=== PATIENT | female | born 1960 | race African-American/Black ===

== ENCOUNTER 2018-09-28 08:33 | Emergency (ER) | payer SELFPAY ==
[~2018-09-28] VITALS: Ht 162.6 cm; Wt 55.0 kg
[2018-09-28] MEDS ORDERED: IBUPROFEN 600MG TABLET PO ONE (09:30)
[2018-09-28 12:18] VITALS: BP 165/77
== END 2018-09-28 12:25 | disposition home or self-care (01) ==
LOC: ER 08:47
DX: M62.838 Other muscle spasm (principal)
CPT/HCPCS: 73140; 99283

== ENCOUNTER 2018-12-14 18:00 | Emergency (ER) | payer SELFPAY ==
[~2018-12-14] VITALS: Ht 167.6 cm; Wt 50.0 kg
[2018-12-14 18:03] VITALS: BP 136/82
[2018-12-14] MEDS ORDERED: SODIUM CHLORIDE 0.9% 1,000 ML IV ONE (22:25)
[2018-12-14] MEDS ORDERED: DIPHENHYDRAMINE 50MG/ML VIAL IV ONE (22:30)
[2018-12-14 22:52] LABS: BASOPHILS % 0.8 % (0.0-2.0); EOSINOPHILS % 3.3 % (0.0-5.0); HEMATOCRIT. 32.9 % (36.0-48.0); HEMOGLOBIN. 11.1 g/dL (12.0-16.0); LYMPHOCYTES % 11.1 % (20.0-50.0); MEAN CORPUSCULAR HEMOGLOBIN 33.2 pg (28.0-32.0); MEAN CORPUSCULAR VOLUME 98.2 fL (81.0-99.0); MEAN PLATELET VOLUME 6.5 fl (7.4-10.4); MONOCYTES % 7.1 % (2.0-8.0); NEUTROPHILS % 77.7 % (40.0-76.0); PLATELET 261 x1000/uL (130-400); RED BLOOD CELL COUNT 3.35 mill/uL (4.2-5.4); RED CELL DISTRIBUTION WIDTH 14.1 % (11.6-14.6)
[2018-12-14 22:54] LABS: CHLORIDE 103 mEq/L (98-107)
== END 2018-12-15 02:21 | disposition home or self-care (01) ==
LOC: ER 18:00
DX: R25.2 Cramp and spasm (principal); R21 Rash and other nonspecific skin eruption; R10.9 Unspecified abdominal pain
CPT/HCPCS: 36415; 80053; 85025; 96374; 99283; J1200; J7030

== ENCOUNTER 2018-12-28 19:17 | Emergency (ER) | payer SELFPAY ==
[~2018-12-28] VITALS: Ht 165.1 cm; Wt 48.0 kg
[2018-12-28 23:05] VITALS: BP 127/62
[2018-12-28] MEDS ORDERED: DIPHENHYDRAMINE HCL/ZINC ACET 28 GM CREAM TOP STA (23:05)
[2018-12-28] MEDS ORDERED: ACETAMINOPHEN 325MG TABLET PO ONE (23:15)
== END 2018-12-29 | disposition home or self-care (01) ==
LOC: ER 19:17
DX: L29.8 Other pruritus (principal); F12.10 Cannabis abuse, uncomplicated; M25.562 Pain in left knee; M25.561 Pain in right knee; F17.200 Nicotine dependence, unspecified, uncomplicated; Z59.0 Homelessness
CPT/HCPCS: 99283

== ENCOUNTER 2019-01-29 23:36 | Emergency (ER) | payer SELFPAY ==
[~2019-01-29] VITALS: Ht 170.2 cm; Wt 58.0 kg
[2019-01-30] MEDS ORDERED: ACETAMINOPHEN 325MG TABLET PO ONE (01:15)
[2019-01-30 08:35] VITALS: BP 142/79
== END 2019-01-30 09:52 | disposition left against medical advice (07) ==
LOC: ER 23:36
DX: G89.29 Other chronic pain (principal); Z59.0 Homelessness; F17.210 Nicotine dependence, cigarettes, uncomplicated
CPT/HCPCS: 99283

== ENCOUNTER 2019-01-30 16:35 | Emergency (ER) | payer SELFPAY ==
[~2019-01-30] VITALS: Ht 162.6 cm; Wt 53.0 kg
[2019-01-30 22:08] LABS: CHLORIDE 96 mEq/L (98-107)
[2019-01-30 22:09] LABS: BASOPHILS % 1.1 % (0.0-2.0); EOSINOPHILS % 0.4 % (0.0-5.0); HEMATOCRIT. 32.3 % (36.0-48.0); HEMOGLOBIN. 11.1 g/dL (12.0-16.0); LYMPHOCYTES % 29.2 % (20.0-50.0); MEAN CORPUSCULAR HEMOGLOBIN 33.1 pg (28.0-32.0); MEAN CORPUSCULAR VOLUME 96.8 fL (81.0-99.0); MEAN PLATELET VOLUME 6.4 fl (7.4-10.4); MONOCYTES % 6.3 % (2.0-8.0); PLATELET 233 x1000/uL (130-400); RED BLOOD CELL COUNT 3.34 mill/uL (4.2-5.4); RED CELL DISTRIBUTION WIDTH 14.5 % (11.6-14.6)
[2019-01-30 22:26] LABS: ETHANOL BLOOD 303 mg/dL
[2019-01-31 07:30] VITALS: BP 126/74
== END 2019-01-31 09:31 | disposition home or self-care (01) ==
LOC: ER 16:35
DX: F10.129 Alcohol abuse with intoxication, unspecified (principal); R53.83 Other fatigue; F32.9 Major depressive disorder, single episode, unspecified; Z59.0 Homelessness
CPT/HCPCS: 36415; 80307; 80320; 80329; 99283; G0480

== ENCOUNTER 2019-01-31 17:14 | Emergency (ER) | payer SELFPAY ==
[~2019-01-31] VITALS: Ht 162.6 cm; Wt 60.0 kg
[2019-01-31 17:24] VITALS: BP 134/61
== END 2019-01-31 21:00 | disposition left against medical advice (07) ==
LOC: ER 17:14
DX: Z53.21 Procedure and treatment not carried out due to patient leaving prior to being seen by health care provider (principal)

== ENCOUNTER 2019-02-08 20:29 | Emergency (ER) | payer SELFPAY ==
[~2019-02-08] VITALS: Ht 175.3 cm; Wt 50.0 kg
[2019-02-09 02:12] VITALS: BP 129/85
== END 2019-02-09 02:21 | disposition home or self-care (01) ==
LOC: EDUNIT# 20:29 → ER 20:29
DX: M21.511 Acquired clawhand, right hand (principal); M62.838 Other muscle spasm; F10.10 Alcohol abuse, uncomplicated; Y90.9 Presence of alcohol in blood, level not specified
CPT/HCPCS: 99281